=== PATIENT | female | born 1955 | race Caucasian/White ===

== ENCOUNTER → 2016-11-09 | Outpatient (CLI) | payer OTHER | LOC: FIMAGING 13:48 | PROVIDERS: ATTEND Obstetrics & Gynecology | DX: Z12.31 Encounter for screening mammogram for malignant neoplasm of breast (principal) | CPT/HCPCS: G0202 ==

== ENCOUNTER → 2017-11-17 | Outpatient (CLI) | payer OTHER | LOC: FIMAGING 10:49 | PROVIDERS: ATTEND Obstetrics & Gynecology | DX: Z12.31 Encounter for screening mammogram for malignant neoplasm of breast (principal) ==

== ENCOUNTER → 2018-01-07 | Outpatient (CLI) | payer OTHER | LOC: FIMAGING 12:39 | PROVIDERS: ATTEND Family Medicine | DX: M81.0 Age-related osteoporosis without current pathological fracture (principal); Z78.0 Asymptomatic menopausal state ==

== ENCOUNTER → 2018-12-05 | Outpatient (CLI) | payer OTHER | LOC: FIMAGING 11:35 ==